=== PATIENT | male | born 1930 | race African-American/Black ===

== ENCOUNTER 2017-02-13 12:28 | Emergency (ER) | payer OTHER ==
[~2017-02-13] VITALS: Ht 177.8 cm; Wt 88.7 kg
[~2017-02-13 12:28] MED LIST: CLOP75 PO; GABA-531 PO; INSU100C7 SQ; OSCD250 PO; SELE5TAB10 PO; SIMV5TAB6 PO; SINE25100 PO; [UNRECOGNIZED DRUG - CODE] PO
[2017-02-13] MEDS ORDERED: INSLAN SQ (12:39)
[2017-02-13] MEDS ORDERED: METF500T4 PO (12:39)
[2017-02-13] MEDS ORDERED: ATOR10TA84 PO (12:39)
[2017-02-13] MEDS ORDERED: LISI-660 PO (12:39)
[2017-02-13 13:07] LABS: BASOPHILS % (AUTO) 0.3 % (0.0-2.0); EOSINOPHILS % (AUTO) 0.7 % (1.0-6.0); HEMOGLOBIN 12.4 g/dL (13.5-17.5); LYMPHOCYTES # (AUTO) 0.8 K/uL (1.0-4.8); LYMPHOCYTES % (AUTO) 14.5 % (22.0-44.0); MEAN CORPUSCULAR HEMOGLOBIN 33.2 pg (26.0-34.0); MEAN CORPUSCULAR HGB CONC 33.4 G/dL (31.0-37.0); MEAN CORPUSCULAR VOLUME 99 fL (80-100); MONOCYTES # (AUTO) 0.4 K/uL (0.1-1.0); MONOCYTES % (AUTO) 7.3 % (2.0-9.0); NEUTROPHILS # (AUTO) 4.2 K/uL (1.8-7.7); NEUTROPHILS % (AUTO) 77.2 % (40.0-70.0); PLATELET COUNT (AUTO) 233 K/uL (150-450); RED BLOOD CELL COUNT(AUTO) 3.73 MIL/uL (4.50-5.90); RED CELL DISTRIBUTION WIDTH 14.4 % (11.5-14.5); WHITE BLOOD COUNT (AUTO) 5.5 K/uL (4.5-11.0)
[2017-02-13 13:13] LABS: ANION GAP 7 mmol/L (8-16); CALCIUM, TOTAL 8.6 mg/dL (8.8-10.5); CARBON DIOXIDE 28 mmol/L (22-29); CHLORIDE 105 mmol/L (98-107); CREATININE 1.32 mg/dL (0.60-1.30); GLOMERULAR FILTR. RATE CALC > 60 mL/min (>60); POTASSIUM 4.4 mmol/L (3.5-5.1); SODIUM SERUM 140 mmol/L (136-145); UREA NITROGEN, BLOOD 22 mg/dL (7-18)
[2017-02-13 13:16] LABS: INR 1.1 (0.9-1.1); PROTHROMBIN TIME 11.4 SEC (9.4-11.6)
[2017-02-13 13:19] LABS: ALANINE AMINOTRANSFERASE 31 U/L (12-78); ALBUMIN 3.2 g/dL (3.4-5.0); ASPARTATE AMINOTRANSFERASE 22 U/L (15-37); BILIRUBIN,TOTAL 0.6 mg/dL (0.1-1.0); CREATINE KINASE, TOTAL 59 U/L (39-308); TOTAL PROTEIN, SERUM 6.8 g/dL (6.4-8.2)
[2017-02-13 13:21] LABS: TROPONIN I 0.05 ng/mL (0.00-0.05)
[2017-02-13 13:28] LABS: B-TYPE NATRIURETIC PEPTIDE 120 pg/mL (0-100)
[2017-02-13] MEDS ORDERED: SODIUM CHLORIDE 0.9% 1,000 ML IV ONE ×2 (13:30→15:30)
[2017-02-13 14:17] LABS: ABG A-A DIFF O2 72.9 mmHg (10-20.0); ABG BASE EXCESS 2.7 mmol/L (-2.0-3.0); ABG HCO3 26.3 mmol/L (22.0-26.0); ABG OXYHEMOGLOBIN 97.1 % (94.0-100.0); ABG PCO2 46 mmHg (35-45); ABG PH 7.393 (7.35-7.450); ALLEN TEST, BLOOD GAS Positive; TEMPERATURE, FAHRENHEIT, BG 97.2 FAHREN (96.0-98.6)
[2017-02-13 14:22] LABS: LACTIC ACID 2.9 mmol/L (0.4-2.0)
[2017-02-13] MEDS ORDERED: AZITHROMYCIN 500 MG/NS 250 ML IV ONE (14:30)
[2017-02-13] MEDS ORDERED: CefTRIAXone 1 GM/DEXTROSE 50 ML IV ONE (14:30)
[2017-02-13 14:58] LABS: REFLEX LACTIC ACID? YES YES
[2017-02-13 18:13] VITALS: BP 143/80
== END 2017-02-13 18:55 | disposition short-term general hospital (02) ==
LOC: EMS 12:29
DX: G93.40 Encephalopathy, unspecified (principal); J18.9 Pneumonia, unspecified organism; E87.2 Acidosis; N28.9 Disorder of kidney and ureter, unspecified; E11.9 Type 2 diabetes mellitus without complications; I10 Essential (primary) hypertension; K21.9 Gastro-esophageal reflux disease without esophagitis; Z79.4 Long term (current) use of insulin
CPT/HCPCS: 36415; 70450; 71010; 80053; 82140; 82550; 82805; 82962; 83605; 83880; 84484; 85025; 85610; 85730; 87040; 93005; 96365; 96375; 99285; G0480; J0456; J0696; J7030; 51702

== ENCOUNTER 2017-05-05 14:05 | Emergency (ER) | payer OTHER ==
[~2017-05-05] VITALS: Ht 182.9 cm; Wt 87.7 kg
[~2017-05-05 14:05] MED LIST changes: +ATOR10TA84 PO; -CLOP75 PO; +INSLAN SQ; -INSU100C7 SQ; +LISI-660 PO; +METF500T4 PO; -SIMV5TAB6 PO; -SINE25100 PO
[2017-05-05] MEDS ORDERED: PRAM0.258 PO (14:15)
[2017-05-05 14:22] LABS: GLUCOSE,POINT OF CARE 129 MG/DL (70-110)
[2017-05-05] MEDS ORDERED: SODIUM CHLORIDE 0.9% 1,000 ML IV ONE ×2 (14:30→16:00)
[2017-05-05 15:11] LABS: BASOPHILS % (AUTO) 0.9 % (0.0-2.0); EOSINOPHILS % (AUTO) 0.9 % (1.0-6.0); HEMATOCRIT 41.2 % (41-53); HEMOGLOBIN 13.5 g/dL (13.5-17.5); LYMPHOCYTES # (AUTO) 1.2 K/uL (1.0-4.8); LYMPHOCYTES % (AUTO) 23.9 % (22.0-44.0); MEAN CORPUSCULAR HEMOGLOBIN 32.8 pg (26.0-34.0); MEAN CORPUSCULAR HGB CONC 32.7 G/dL (31.0-37.0); MEAN CORPUSCULAR VOLUME 100 fL (80-100); MONOCYTES # (AUTO) 0.5 K/uL (0.1-1.0); MONOCYTES % (AUTO) 9.6 % (2.0-9.0); NEUTROPHILS # (AUTO) 3.1 K/uL (1.8-7.7); NEUTROPHILS % (AUTO) 64.7 % (40.0-70.0); PLATELET COUNT (AUTO) 269 K/uL (150-450); RED BLOOD CELL COUNT(AUTO) 4.12 MIL/uL (4.50-5.90); RED CELL DISTRIBUTION WIDTH 14.4 % (11.5-14.5)
[2017-05-05 15:24] LABS: ANION GAP 6 mmol/L (8-16); CALCIUM, TOTAL 8.8 mg/dL (8.8-10.5); CARBON DIOXIDE 30 mmol/L (22-29); CHLORIDE 103 mmol/L (98-107); CREATININE 1.45 mg/dL (0.60-1.30); GLOMERULAR FILTR. RATE CALC 56 mL/min (>60); GLUCOSE,RANDOM 174 mg/dL (70-110); POTASSIUM 4.6 mmol/L (3.5-5.1); SODIUM SERUM 139 mmol/L (136-145); UREA NITROGEN, BLOOD 27 mg/dL (7-18)
[2017-05-05 15:37] LABS: INR 1.1 (0.9-1.1); PROTHROMBIN TIME 11.4 SEC (9.4-11.6)
[2017-05-05 15:38] LABS: ALANINE AMINOTRANSFERASE 14 U/L (12-78); ALBUMIN 3.1 g/dL (3.4-5.0); ALKALINE PHOSPHATASE 133 U/L (46-116); ASPARTATE AMINOTRANSFERASE 36 U/L (15-37); BILIRUBIN,TOTAL 0.6 mg/dL (0.1-1.0); CREATINE KINASE, TOTAL 53 U/L (39-308); TOTAL PROTEIN, SERUM 7.2 g/dL (6.4-8.2)
[2017-05-05 15:42] LABS: B-TYPE NATRIURETIC PEPTIDE 327 pg/mL (0-100)
[2017-05-05 15:46] LABS: LACTIC ACID 2.6 mmol/L (0.4-2.0)
[2017-05-05 16:28] LABS: PATHOLOGY REVIEW, DIFF 23
[2017-05-05] MEDS ORDERED: VANCOMYCIN HCL 1 GM/D5% WATER 200 ML IV ONE (17:00)
[2017-05-05] MEDS ORDERED: LEVOFLOXACIN 750 MG/D5% WATER 150 ML IV ONE (17:00)
[2017-05-05 19:15] LABS: APPEARANCE,URINE CLEAR (CLEAR); BILIRUBIN,URINE NEGATIVE (NEGATIVE); GLUCOSE, URINE (UA) NEGATIVE (NEGATIVE); KETONES,URINE NEGATIVE (NEGATIVE); LEUKOCYTE ESTERASE ,URINE NEGATIVE (NEGATIVE); NITRATE,URINE NEGATIVE (NEGATIVE); OCCULT BLOOD,URINE NEGATIVE (NEGATIVE); PH,URINE 5.5 (5.0-8.0); PROTEIN,URINE NEGATIVE (NEGATIVE); UROBILINOGEN,URINE 0.2 mg/dL (<=1.0)
[2017-05-05] MEDS ORDERED: CloNIDine HCL 0.1 MG TABLET PO ONE (19:45)
[2017-05-05] MEDS ORDERED: NITROGLYCERIN 2% (1 GM=INCH) PACKET TP ONE (20:15)
[2017-05-05 21:17] VITALS: BP 148/86
== END 2017-05-05 21:29 | disposition short-term general hospital (02) ==
LOC: EMS 14:07
DX: J18.9 Pneumonia, unspecified organism (principal); R55 Syncope and collapse; R56.9 Unspecified convulsions; E11.9 Type 2 diabetes mellitus without complications; K21.9 Gastro-esophageal reflux disease without esophagitis; I10 Essential (primary) hypertension; Z86.73 Personal history of transient ischemic attack (TIA), and cerebral infarction without residual deficits; Z95.0 Presence of cardiac pacemaker; Z79.4 Long term (current) use of insulin
CPT/HCPCS: 36415; 70450; 71045; 80053; 81003; 82550; 82962; 83605; 83880; 84484; 85025; 85610; 85651; 85730; 87040; 93005; 96361; 96365; 96366; 96368; 99285; J1956; J3370; J7030